=== PATIENT | male | born 1975 | race Caucasian/White ===

== ENCOUNTER 2017-10-20 13:33 | Emergency (ER) | payer MEDICARE ==
[~2017-10-20] VITALS: Ht 165.1 cm; Wt 74.4 kg
[2017-10-20 13:33] VITALS: BP_SYST 133
[2017-10-20 14:00] VITALS: BP_SYST 126
== END 2017-10-20 14:00 | disposition home or self-care (01) ==
LOC: SED 13:33
DX: J02.9 Acute pharyngitis, unspecified (principal); Z88.5 Allergy status to narcotic agent; Z88.6 Allergy status to analgesic agent
CPT/HCPCS: 99283

== ENCOUNTER 2019-06-12 13:49 | Emergency (ER) | payer OTHER, BC ==
[~2019-06-12] VITALS: Ht 165.1 cm; Wt 74.8 kg
[2019-06-12 13:57] VITALS: BP_SYST 141
[2019-06-12 14:46] LABS: BASOPHILS # (AUTO) 0.1 K/uL (0.0-0.2); BASOPHILS % (AUTO) 0.7 % (0.0-2.0); EOSINOPHILS # (AUTO) 0.2 K/uL (0.0-0.4); EOSINOPHILS % (AUTO) 3.3 % (0.0-4.0); HEMATOCRIT 44.8 % (36-54); HEMOGLOBIN 15.6 g/dL (14.0-18.0); LYMPHOCYTES # (AUTO) 2.5 K/uL (1.0-5.5); MEAN CORPUSCULAR HEMOGLOBIN 31 pg (27-31); MEAN CORPUSCULAR HGB CONC 35 % (32-36); MEAN CORPUSCULAR VOLUME 89 fL (79.0-98.0); MONOCYTES # (AUTO) 0.5 K/uL (0.0-1.0); MONOCYTES % (AUTO) 7.7 % (1.7-9.3); NEUTROPHILS # (AUTO) 3.8 K/uL (1.8-7.7); NEUTROPHILS % (AUTO) 53.3 % (40.0-70.0); PLATELET COUNT (AUTO) 283 K/uL (130-430); RED BLOOD CELL COUNT(AUTO) 5.02 MIL/uL (4.2-6.2); WHITE BLOOD COUNT (AUTO) 7.1 K/uL (4.8-10.8)
[2019-06-12 15:00] LABS: CREATININE 1.07 mg/dL (0.55-1.30); POTASSIUM 3.7 mmol/L (3.5-5.1)
[2019-06-12 15:05] LABS: ALBUMIN 3.7 g/dL (3.4-4.8); CALCIUM 8.9 mg/dL (8.4-11.0); TOTAL BILIRUBIN 0.3 mg/dL (0.0-1.0)
[2019-06-12 16:03] LABS: BILIRUBIN,URINE NEGATIVE (NEGATIVE); BLOOD, URINE NEGATIVE (NEGATIVE); CLARITY/URINE CLEAR (CLEAR); COLOR,URINE YELLOW (YELLOW); GLUCOSE,URINE NEGATIVE (NEGATIVE); KETONES,URINE NEGATIVE (NEGATIVE); LEUKOCYTE ESTERASE ,URINE NEGATIVE (NEGATIVE); NITRITE, URINE NEGATIVE (NEGATIVE); PROTEIN URINE NEGATIVE (NEGATIVE); UROBILINOGEN,URINE 0.2 (0.2-1.0)
[2019-06-12 16:15] VITALS: BP_SYST 136
== END 2019-06-12 16:15 | disposition home or self-care (01) ==
LOC: SED 13:49
DX: R53.83 Other fatigue (principal); R03.0 Elevated blood-pressure reading, without diagnosis of hypertension; Z88.5 Allergy status to narcotic agent; Z88.6 Allergy status to analgesic agent
CPT/HCPCS: 36415; 71046-TC; 80053; 81003; 84484; 85025; 93005; 99284

== ENCOUNTER 2020-05-12 08:40 | Emergency (ER) | payer BC ==
[~2020-05-12] VITALS: Ht 167.6 cm; Wt 73.5 kg
[2020-05-12 08:51] VITALS: BP_SYST 132
--- NOTE | 2020-05-12 08:55 | NUR ---
Patient to ER bed 04 to gown for evaluation. Side rails up.
--- NOTE | 2020-05-12 08:57 | NUR ---
ER Dr. Eng at bedside examining patient.
--- NOTE | 2020-05-12 09:00 | NUR ---
C/O NV, WEAKNESS AND SWEATING FOR 2 DAYS. HE DENIES ANY MEDICAL HISTORY, BUT HAS BEEN HERE PRIOR FOR ANXIETY.HE ALSO ADMITS TO METHAMPHETAMINE USE. HE IS AAOX4 AND V/ STABLE WILL CONTINUE TO MONITOR
--- NOTE | 2020-05-12 09:05 | NUR ---
EKG performed at by ASHANTI TALLEY. Physician given copy of EKG for review.
--- NOTE | 2020-05-12 09:20 | NUR ---
Patient given written and verbal discharge instructions and verbalizes understanding. ER MD discussed with patient the results and treatment provided. Patient in stable condition. ID arm band removed. Patient educated on pain management and to follow up with PMD. Pain Scale 0/10. Opportunity for questions provided and answered. Medication side effect fact sheet provided.
[2020-05-12 09:23] VITALS: BP_SYST 132
== END 2020-05-12 09:23 | disposition home or self-care (01) ==
LOC: SED 08:40
DX: F15.10 Other stimulant abuse, uncomplicated (principal); Z88.6 Allergy status to analgesic agent
CPT/HCPCS: 93005; 99283

== ENCOUNTER 2021-08-23 13:59 | Emergency (ER) | payer BC ==
[~2021-08-23] VITALS: Ht 165.1 cm; Wt 74.8 kg
[2021-08-23 14:05] VITALS: BP_SYST 146
--- NOTE | 2021-08-23 14:05 | NUR ---
Placed in room 8 . Placed on vehicle monitor technician, blood pressure machine and pulse oximeter. To gown for exam. Side rails up. Report given to ASHANTI TURNER.
--- NOTE | 2021-08-23 14:10 | NUR ---
pt. bib with c/o 10/10 pain to left side X 4 days, denies N/V/D, has been taking tramadol at home and hoping pain would pass but has had no improvement
--- NOTE | 2021-08-23 14:13 | NUR ---
ER at bedside examining patient.
[2021-08-23] MEDS: ONDANSETRON 4 MG ODT TAB PO ONE ×2 (14:24→16:42)
[2021-08-23] MEDS: KETOROLAC TROMETHAMINE 60 MG/2 ML VIAL IM ONE (14:24)
--- NOTE | 2021-08-23 14:25 | NUR ---
lab at bedside
--- NOTE | 2021-08-23 14:28 | NUR ---
Patient transported to radiology via wheelchair, accompanied by staff.
[2021-08-23 14:42] LABS: BASOPHILS % (AUTO) 0.4 % (0.0-2.0); EOSINOPHILS % (AUTO) 0.2 % (0.0-4.0); HEMOGLOBIN 16.8 g/dL (14.0-18.0); LYMPHOCYTES # (AUTO) 1.5 K/uL (1.0-5.5); LYMPHOCYTES % (AUTO) 14.6 % (20.5-51.5); MEAN CORPUSCULAR HEMOGLOBIN 31 pg (27-31); MEAN CORPUSCULAR HGB CONC 35 % (32-36); MEAN CORPUSCULAR VOLUME 88 fL (79.0-98.0); MONOCYTES # (AUTO) 0.8 K/uL (0.0-1.0); MONOCYTES % (AUTO) 8.3 % (1.7-9.3); NEUTROPHILS # (AUTO) 7.7 K/uL (1.8-7.7); NEUTROPHILS % (AUTO) 76.5 % (40.0-70.0); PLATELET COUNT (AUTO) 264 K/uL (130-430); RED BLOOD CELL COUNT(AUTO) 5.46 MIL/uL (4.2-6.2); RED CELL DISTRIBUTION WIDTH 12.9 % (9.0-15.0); WHITE BLOOD COUNT (AUTO) 10.1 K/uL (4.8-10.8)
[2021-08-23 14:49] LABS: BILIRUBIN,URINE NEGATIVE (NEGATIVE); BLOOD, URINE 3+ (NEGATIVE); CLARITY/URINE CLEAR (CLEAR); COLOR,URINE YELLOW (YELLOW); GLUCOSE,URINE NEGATIVE (NEGATIVE); KETONES,URINE NEGATIVE (NEGATIVE); LEUKOCYTE ESTERASE ,URINE NEGATIVE (NEGATIVE); NITRITE, URINE NEGATIVE (NEGATIVE); PH,URINE 6.5 (5.0-8.0); PROTEIN URINE NEGATIVE (NEGATIVE); UROBILINOGEN,URINE 0.2 (0.2-1.0)
[2021-08-23 15:01] LABS: BACTERIA,URINE None Seen /HPF (None Seen); WBC,URINE 0-3 /HPF (0-3)
--- NOTE | 2021-08-23 15:10 | NUR ---
REPORT RECEIVED FROM ASHANTI TURNER FOR CONTINUING CARE
[2021-08-23 15:22] LABS: PROTHROMBIN TIME 10.1 SECS (9.5-12.5)
[2021-08-23] MEDS ORDERED: IBUP-1971 PO (15:44)
[2021-08-23] MEDS ORDERED: HYDR-3917 PO (15:44)
[2021-08-23 16:06] LABS: CALCIUM 9.7 mg/dL (8.4-11.0); CREATININE 1.37 mg/dL (0.55-1.30); POTASSIUM 4.3 mmol/L (3.5-5.1)
[2021-08-23 16:11] LABS: ALBUMIN 3.9 g/dL (3.4-4.8); TOTAL BILIRUBIN 0.8 mg/dL (0.0-1.0)
[2021-08-23 16:29] LABS: C-REACTIVE PROTEIN QUANT 3.3 mg/dL (0-0.5)
[2021-08-23 16:34] VITALS: BP_SYST 138
--- NOTE | 2021-08-23 16:34 | NUR ---
Patient given written and verbal discharge instructions and verbalizes understanding. ER MD discussed with patient the results and treatment provided. Patient in stable condition. ID arm band removed. Rx of NORCO AND IBUPROFEN given. Patient educated on pain management and to follow up with PMD. Pain Scale 0/10. Opportunity for questions provided and answered. Medication side effect fact sheet provided.
== END 2021-08-23 16:34 | disposition home or self-care (01) ==
LOC: SED 13:59
DX: N23 Unspecified renal colic (principal); Z88.8 Allergy status to other drugs, medicaments and biological substances; Z88.5 Allergy status to narcotic agent; Z79.899 Other long term (current) drug therapy
CPT/HCPCS: 36415; 74176; 76376; 80053; 81000; 82150; 83605; 83690; 85025; 85610; 85730; 86140; 96372; 99284; J1885; Q0162